=== PATIENT | female | born 1980 | race Caucasian/White ===

== ENCOUNTER 2016-11-11 14:25 | Emergency (ER) | payer OTHER ==
[~2016-11-11] VITALS: Ht 162.6 cm; Wt 65.9 kg
[2016-11-11] MEDS ORDERED: PERCOCET 5/31 TABLET PO (16:50)
[2016-11-11] MEDS ORDERED: MOTRIN800 MG PO (16:50)
[2016-11-11 18:21] VITALS: BP 134/71
== END 2016-11-11 18:22 | disposition home or self-care (01) ==
LOC: EME 14:25
PROC: 0PSHXZZ Reposition Right Radius, External Approach (ICD-10-PCS; principal; 2016-11-11)
DX: S52.501A Unspecified fracture of the lower end of right radius, initial encounter for closed fracture (principal); S52.611A Displaced fracture of right ulna styloid process, initial encounter for closed fracture; Y93.23 Activity, snow (alpine) (downhill) skiing, snowboarding, sledding, tobogganing and snow tubing; W19.XXXA Unspecified fall, initial encounter
CPT/HCPCS: 73110; 99281; 99285; J2270; J2405; J3010; J7030